=== PATIENT | male | born 1925 | race Caucasian/White ===

== ENCOUNTER 2017-03-01 21:45 | Inpatient (IN) ==
[2017-03-01 22:25] LABS: Basophils % 0.3 % (0.0-0.8); Hemoglobin 12.9 GM/DL (14.0-18.0); Immature Granulocytes % 0.4 %; Immature Granulocytes Absolute 0.08 #; Neutrophils % 35.8 % (38.7-73.9); Red Cell Distribution Width 18.7 % (9.3-17.3)
[2017-03-01 22:31] LABS: Basophils # 0.1 10*3/uL (0.0-0.2); Eosinophils # 0.2 10*3/uL (0.0-0.87); Eosinophils % 0.7 % (0.00-10.9); Hematocrit 38.8 VOL% (42.0-52.0); Lymphocytes % 59.6 % (21.2-54.2); Mean Corpuscular HGB Conc 33.2 GM/DL (32-36); Mean Corpuscular Hemoglobin 28 PG (27-34); Mean Corpuscular Volume 85.3 FL (87-102); Mean Platelet Volume 10.3 FL (9.6-12.0); Monocytes # 0.7 10*3/uL (0.11-0.8); Monocytes % 3.2 % (1.7-12.7); Neutrophils # 7.2 10*3/uL (1.4-7.4); Platelet Count 250 T/CUMM (130-400); Red Blood Count 4.55 MC/CUMM (3.8-5.5); White Blood Count 20.2 T/CUMM (4-12)
[2017-03-01 22:43] LABS: Alanine Aminotransferase 19 U/L (16-61); Albumin 3.7 G/DL (3.4-5.0); Alkaline Phosphatase 90 U/L (45-117); Aspartate Amino Transferase 27 U/L (0-37); Bilirubin,Total < 0.39 MG/DL (0.2-1.0); Blood Urea Nitrogen 15 MG/DL (7-18); Calcium 8.8 MG/DL (8.5-10.1); Glucose 106 MG/DL (74-106); Osmolality,Calculated 279.4 MOS/KG (273-304); Potassium 4.2 MMOL/L (3.5-5.1); Sodium 140 MMOL/L (136-145); Total Protein 6.4 G/DL (6.4-8.3)
[2017-03-01 23:31] LABS: D-Dimer 0.6 MG/L FEU; PT Patient Result 10.2 SECS; Partial Thromboplastin Time 24.6 SECS (0-40)
[2017-03-01 23:32] LABS: Troponin I Only < 0.015 NG/ML (0.00-0.045)
[2017-03-01] MEDS ORDERED: ALUM/MAG/SIMETH/LIDO VISC 1:1 30 ML BOTTLE PO ONE (23:55)
[2017-03-01] MEDS ORDERED: ALUM/MAG/SIMETH/LIDO VISC 1:1 30 ML BOTTLE PO STA (23:55)
[2017-03-02 00:30] LABS: Lymphocytes 53 % (20-55); Segmented Neutrophils 42 % (50-85); Total Cells Counted 100
[2017-03-02 00:31] LABS: Atypical Lymphocytes Few; Platelet Estimate Normal; Smudge Cells Moderate
--- NOTE | 2017-03-02 02:04 | Emergency Department Note ---
Arrival - Arrival Chief Complaint: Shortness of Breath Stated Complaint: sob ED Nursing Triage Note: pt brought in by ems with c/o shortness of breath and nausea. pt also states that his arm was "numb" pt has history of anxiety and requests "something for nerves" pt also has hx of chronic leukemia and is followed at the cancer center Mode of Arrival: Stretcher Limitations: No Limitations Source: Patient Time Seen by Provider: 03/01/17 22:59 - History of Present Illness HPI Narrative: Patient complains of sudden onset of shortness of breath, nausea and vomiting tonight. He also states that his arm was feeling numb and that he was also very anxious. He denies any chest pain on arrival. He has had no fever, cough , rhinorrhea, sore throat or other recent illness. He does have a history of anxiety. He has no known history of coronary disease. Allergies/Adverse Reactions: Allergies Allergy/AdvReac Type Severity Reaction Status Date / Time acetaminophen [From [place]] Allergy Mild ITCHING Verified 11/05/16 11:23 hydrocodone [From [place]] Allergy Mild ITCHING Verified 11/05/16 11:23 Hydromorphone [From Dilaudid] Allergy Mild ITCHING Verified 11/05/16 11:23 morphine Allergy Mild ITCHING Verified 01/23/15 08:24 codeine AdvReac Intermediate Nausea Verified 01/23/15 08:23 clarithromycin [From Biaxin] AdvReac Verified 07/22/16 08:03 terbinafine [From Lamisil] AdvReac Verified 07/22/16 08:03 Home Medications: Home Medications Medication Instructions Recorded Confirmed Type Esomeprazole Magnesium [Nexium] 40 mg PO BID 01/19/15 11/04/16 History Multivitamin [One Daily] 1 each PO BEDTIME 01/19/15 11/04/16 History Zolpidem Tartrate [Ambien] 10 mg PO BEDTIME PRN 01/19/15 11/04/16 History Levothyroxine Tab [Synthroid Tab] 25 mcg PO DAILY@0700 #30 tablet 01/26/1511/04 Rx Fluoxetine HCl [Prozac] 40 mg PO DAILY 03/25/16 11/04/16 History Terazosin [Hytrin] 10 mg PO BEDTIME 03/25/16 11/04/16 History clonazePAM [Klonopin] 1 mg PO BEDTIME 03/25/16 11/04/16 History Aspirin [Ecotrin] 81 mg PO DAILY 07/22/16 11/04/16 History Carbidopa/Levodopa 10-100 [Sinemet 1 tablet PO BEDTIME PRN 07/22/16 11/04/16 History 10-100] Gabapentin Cap/Tab [Neurontin 300 mg PO BID 07/22/16 11/04/16 History Cap/Tab] Melatonin 5 mg PO BEDTIME 07/22/16 11/04/16 History Ondansetron HCl [Zofran Tab] 8 mg PO QID 11/04/16 11/04/16 History Esomeprazole Magnesium [Nexium] 40 mg PO BID 11/05/16 11/05/16 History HYDROcodone/ACETAMIN 10-325 [[place] 1 mg PO 11/05/16 History 10-325] Polycarbophil [Fibercon] 1,250 mg PO DAILY 11/05/16 11/05/16 History Review of System - Review of System 12 point system: reviewed and no additional remarkable complaints except as stated - Review of System Constitutional: Absent: fever Head/Ears/Nose/Throat: Absent: nasal drainage, sore throat Respiratory: Absent: cough, wheezing Cardiovascular: Absent: chest pain Gastrointestinal: Present: nausea, vomiting. Absent: abdominal pain Neurological: Present: paresthesias Psychiatric: Present: anxiety Medical,Surgical,& Family Hx - Medical History Cardio: No history of: Hypertension Psychological: History of: Anxiety Disorders Neurology: History of: Migraine, Neurological Problems (history of trigeminal neuralgia) No history of: Seizures HEENT: History of: HEENT Problems (3 sinus surgeries) Endocrine: History of: Thyroid Disorder (hypothyroid) No history of: Diabetes Mellitus (NIDDM) Respiratory: No history of: Obstructive Sleep Apnea Genitourinary: History of: Prostate Problems (BPH) Gastrointestinal: History of: Diverticulitis/ Diverticulosis, GERD, Ulcerative Colitis, GI Problems (frequent nausea, hiatal hernia) Musculoskeletal: History of: Musculoskeletal Problems (arthritis in shoulder and knee) Hematology: History of: Anemia (iron deficiency), Hematologic Cancer (he has chronic lymphocytic leukemia) Other: History of: Skin Problems (skin cancers frequently) - Surgical History HEENT Surgeries: Surgical HX of: Eye Surgery (cataract removal both eyes) Patient denies: Tonsilectomy & Adenoidectomy Abdominal Surgeries: Surgical HX of: Cholecystectomy (galbladder removed 2012), Colonoscopy, EGD - Family History Family History: Reports;: Family Cancer (sister leukemia; she has ALL), Family Heart Disease (his mother had an [place]), Family Hypertension (father heart attack) , Family Stroke (his sister had a stroke) - Social History Smoking Status: Never smoker Frequency of Alcohol Use: None Type of Drug Use: None Exam Physical Examination: GENERAL: Alert. No acute distress. HEENT: Normocephalic and atraumatic. There is no nasal drainage. No pharyngeal erythema or exudate. NECK: Normal inspection. Supple. No lymphadenopathy or meningismus. LUNGS: No respiratory distress. Clear to auscultation bilaterally, no wheezes, rales or rhonchi. HEART: Regular rate and rhythm. ABDOMEN: Soft, nontender and nondistended with normoactive bowel sounds. BACK: Normal inspection. SKIN: Color normal. Warm and dry. EXTREMITIES: Nontender. Normal range of motion. No pedal edema. NEUROLOGICAL/PSYCHIATRIC: Alert and oriented -3 with normal mood and affect. Cranial nerves normal. No motor or sensory deficit. Vital Signs: Vital Signs Temperature 97.6 F 03/01/17 21:54 Pulse Rate 86 03/01/17 21:54 Respiratory Rate 22 03/01/17 21:54 Blood Pressure 124/101 03/01/17 21:54 O2 Sat by Pulse Oximetry 98 03/01/17 21:54 Course - Reevaluation(s) Reevaluation #1: The patient developed some "heartburn" after arrival here. He was given a GI cocktail and the symptoms resolved. He states they are now coming back a little bit but he has had no further shortness of breath or vomiting. I think given his age and anxiety over the situation admission for observation and serial enzymes as warranted. I discussed the patient with Dr. Valladares and will admit to Dr. Ceja for further observation. Time: 02:55 Results - Labs CBC & BMP: 03/01/17 22:10 03/01/17 22:10 Lab Results: I have reviewed the patients labs Labs: Laboratory Tests 03/01/17 03/01/17 03/01/17 22:10 22:11 22:11 INR 1.0 D-Dimer, Quantitative 0.6 Total Bilirubin < 0.39 AST 27 ALT 19 Total Creatine Kinase 191 CK-MB (CK-2) 4.5 H Troponin I < 0.015 Total Protein 6.4 - Impressions Chest x-ray shows no acute abnormality. EKG shows a normal sinus rhythm at 84 with a right bundle branch block. The bundle branch block was also present on an EKG done in 2015. Disposition Clinical Impression: Dyspnea, Chest pain, Nausea & vomiting, Leukocytosis (leucocytosis), Anxiety Case discussed with: patient Disposition: Still a Patient Condition: Stable Time of Disposition: 03:03
[2017-03-02] MEDS ORDERED: PANTOPRAZOLE 40 MG VIAL IV STA (03:03)
[2017-03-02] MEDS ORDERED: ALUMINUM/MAGNES/SIMETH MAX STR 30 ML UDCUP PO STA (03:03)
[2017-03-02] MEDS ORDERED: ALUM/MAG/SIMETH/LIDO VISC 1:1 30 ML BOTTLE PO ONE (03:10)
[2017-03-02] MEDS ORDERED: PANTOPRAZOLE 40 MG VIAL IV ONE (03:10)
[2017-03-02] MEDS ORDERED: ALUMINUM/MAGNES/SIMETH MAX STR 30 ML UDCUP ONE (03:18)
[2017-03-02] MEDS ORDERED: ONDANSETRON 4 MG/2 ML VIAL IV PRN (04:20)
[2017-03-02] MEDS: traMADol 50 MG TABLET PO PRN ×2 (05:08→09:43)
[2017-03-02] MEDS ORDERED: ZALEPLON 5 MG CAPSULE PO PRN (07:58)
[2017-03-02] MEDS ORDERED: CARBIDOPA/LEVODOPA 10-100 MG TABLET PO PRN (07:58)
--- NOTE | 2017-03-02 08:03 | Family Practice History&Phys ---
Assessment and Plan (1) Atypical chest pain Status: Acute Assessment and plan: 02/22/2017: We will continue cardiac isoenzymes profile. I reassured him that I did not think this was cardiac. He has had persistent pain since yesterday with a negative cardiac isoenzymes. Will repeat EKG this morning. Current Visit: Yes History of Present Illness Chief complaint: Chest pain and shortness of breath. History of present illness: Mr. Gibson is a 89 year old male Patient is a 89-year-old gentleman who presented to the emergency room complaining of chest discomfort. Patient states this was associated with shortness of breath and he became very anxious and told me this morning he needed something for his nerves. He is on Klonopin at home I told we will restart that for him. He had his initial cardiac isoenzymes were negative. The series is pending. Patient's noted to have chest wall tenderness and he tells me it hurts to take a deep breath or hurts to cough. Has not had any fever or chills. Home Medications Medication Instructions Recorded Confirmed Type Esomeprazole Magnesium [Nexium] 40 mg PO BID 01/19/15 11/04/16 History Multivitamin [One Daily] 1 each PO DAILY 01/19/15 03/02/17 History Zolpidem Tartrate [Ambien] 10 mg PO BEDTIME PRN 01/19/15 11/04/16 History Levothyroxine Tab [Synthroid Tab] 25 mcg PO DAILY@0700 #30 tablet 01/26/1503/02 Rx Fluoxetine HCl [Prozac] 40 mg PO DAILY 03/25/16 03/02/17 History Terazosin [Hytrin] 10 mg PO BEDTIME 03/25/16 11/04/16 History Aspirin [Ecotrin] 81 mg PO DAILY 07/22/16 11/04/16 History Carbidopa/Levodopa 10-100 [Sinemet 1 tablet PO BEDTIME PRN 07/22/16 11/04/16 History 10-100] Gabapentin Cap/Tab [Neurontin 300 mg PO BID 07/22/16 03/02/17 History Cap/Tab] Melatonin 5 mg PO BEDTIME 07/22/16 11/04/16 History Ondansetron HCl [Zofran Tab] 8 mg PO QID 11/04/16 11/04/16 History Esomeprazole Magnesium [Nexium] 40 mg PO BID 11/05/16 11/05/16 History HYDROcodone/ACETAMIN 10-325 [[place] 1 mg PO 11/05/16 History 10-325] Polycarbophil [Fibercon] 1,250 mg PO DAILY 11/05/16 11/05/16 History Ascorbic Acid [Vitamin C] 500 mg PO 03/02/17 History Ferrous Sulfate Tab [Feosol 325 mg PO DAILY 03/02/17 03/02/17 History Original Tab] Gluc/David-MSM#2/C/D3/Laureano/Born 1 each PO 03/02/17 History [Zpdpsxjjuu-Bxbgqncjdch-TPP Tab] clonazePAM TAB [KlonoPIN] 0.5 mg PO BID PRN 03/02/17 03/02/17 History Allergies Allergy/AdvReac Type Severity Reaction Status Date / Time acetaminophen [From [place]] Allergy Mild ITCHING Verified 11/05/16 11:23 hydrocodone [From [place]] Allergy Mild ITCHING Verified 11/05/16 11:23 Hydromorphone [From Dilaudid] Allergy Mild ITCHING Verified 11/05/16 11:23 morphine Allergy Mild ITCHING Verified 01/23/15 08:24 codeine AdvReac Intermediate Nausea Verified 01/23/15 08:23 clarithromycin [From Biaxin] AdvReac Verified 07/22/16 08:03 terbinafine [From Lamisil] AdvReac Verified 07/22/16 08:03 - Constitutional Constitutional: Present: weakness. Absent: chills, fever(s) - EENT Eyes: Absent: blurry vision, loss of vision Ears: Absent: decreased hearing, ear pain Nose, mouth and throat: Absent: hoarseness, nasal congestion, sinus pressure, sore throat - Cardiovascular Cardiovascular: Present: as per HPI, chest pain at rest, dyspnea. Absent: radiating jaw, neck or arm pain, lightheadedness, orthopnea, palpitations, PND - Respiratory Respiratory: Absent: cough, dyspnea, dyspnea on exertion, wheezing - Gastrointestinal Gastrointestinal: Absent: abdominal pain, diarrhea, hematemesis, hematochezia, nausea, vomiting - Genitourinary Genitourinary: Absent: dysuria, hematuria, urinary frequency - Musculoskeletal Musculoskeletal: Absent: arthralgias, back pain - Neurological Neurological: Absent: abnormal gait, confusion, focal weakness, numbness, paresthesias - Psychiatric Psychiatric: Present: as per HPI, anxiety. Absent: confusion - Endocrine Endocrine: Absent: fatigue, polydipsia, polyphagia - Hematologic/Lymphatic Hematologic/Lymphatic: Absent: easy bleeding, easy bruising Medical,Surgical,& Family Hx - Medical History Cardio: No history of: Hypertension Psychological: History of: Anxiety Disorders Neurology: History of: Migraine, Neurological Problems (history of trigeminal neuralgia) No history of: Seizures HEENT: History of: HEENT Problems (3 sinus surgeries) Endocrine: History of: Thyroid Disorder (hypothyroid) No history of: Diabetes Mellitus (NIDDM) Respiratory: No history of: Obstructive Sleep Apnea Genitourinary: History of: Prostate Problems (BPH) Gastrointestinal: History of: Diverticulitis/ Diverticulosis, GERD, Ulcerative Colitis, GI Problems (frequent nausea, hiatal hernia) Musculoskeletal: History of: Musculoskeletal Problems (arthritis in shoulder and knee) Hematology: History of: Anemia (iron deficiency), Hematologic Cancer (he has chronic lymphocytic leukemia) Other: History of: Skin Problems (skin cancers frequently) - Surgical History HEENT Surgeries: Surgical HX of: Eye Surgery (cataract removal both eyes) Patient denies: Tonsilectomy & Adenoidectomy Abdominal Surgeries: Surgical HX of: Cholecystectomy (galbladder removed 2012), Colonoscopy, EGD - Family History Family History: Reports;: Family Cancer (sister leukemia; she has ALL), Family Heart Disease (his mother had an [place]), Family Hypertension (father heart attack) , Family Stroke (his sister had a stroke) - Social History Smoking Status: Never smoker Frequency of Alcohol Use: None Type of Drug Use: None Exam - Constitutional Vitals: Period Temp Pulse Resp BP Sys/Castillo Pulse Ox Last 24 Hr 97.6 F-98.4 F 70-86 15-22 124-158/84-101 98-99 Exam: General: Objective patient is a well-developed anxious white male in no acute distress. He is able to answer questions appropriately. HEENT: Pupils equal and reactive to light. Patent nares and airway Neck: No meningismus, adenopathy, thyromegaly. There are no auscultated carotid bruits. Cardiovascular: Regular rhythm. No murmurs or gallops Chest: Clear to auscultation without rales rhonchi wheezes. Patient is noted to have exquisite anterior chest wall tenderness. Abdomen: Soft nontender to palpation No masses, rebound, guarding or tenderness. Neuro: Cranial nerves intact and DTRs and strength symmetric in all extremities. Dermatologic: No evidence of abnormal lesions or masses. Musculoskeletal: There is no joint swelling or tenderness or deformity. Results - Labs CBC & BMP: 03/01/17 22:10 03/01/17 22:10 Lab Results: I have reviewed the past 24 hour labs - EKG EKG results: sinus rhythm (84 bpm) - Impressions Right bundle branch block
[2017-03-02] MEDS: ASCORBIC ACID 500 MG TABLET PO SCH (09:41)
[2017-03-02] MEDS: PANTOPRAZOLE 40 MG VIAL IV SCH (09:41)
[2017-03-02] MEDS: ASPIRIN EC 81 MG TABLET PO SCH (09:43)
[2017-03-02] MEDS: MULTIVITAMIN (CENTRUM) TABLET PO SCH (09:43)
[2017-03-02] MEDS: DOCUSATE SODIUM 100 MG CAPSULE PO SCH ×2 (09:43→21:58)
[2017-03-02] MEDS: GABAPENTIN 300 MG CAPSULE PO SCH ×2 (09:43→21:58)
[2017-03-02] MEDS: POLYCARBOPHIL 625 MG TABLET PO SCH (09:44)
[2017-03-02] MEDS: FLUoxetine 20 MG CAPSULE PO SCH (09:44)
[2017-03-02] MEDS: clonazePAM 0.5 MG TABLET PO PRN (09:44)
[2017-03-02] MEDS: FERROUS SULFATE 325 MG TABLET PO SCH (09:46)
--- NOTE | 2017-03-02 10:09 | EKG Report ---
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
--- NOTE | 2017-03-02 10:20 | XRay Report ---
History: Shortness of breath Date: 03/01/2017 Study: Chest x-ray AP portable Comparison exam: Rib series August 07, 2016 There is borderline cardiomegaly. There is no mediastinal mass. The pulmonary vasculature is not engorged. There is no gross pleural effusion. There is some mild platelike scar or subsegmental atelectasis in the right lower lung similar to the previous study. There is no obvious acute infiltrate or gross pleural effusion. Osseous structures are unchanged. Impression: No definite evidence of an acute process. Mild platelike scar or subsegmental atelectasis right lower lung similar to the previous study PROCEDURE INTERPRETED AT [facility] [place] DEPARTMENT OF RADIOLOGY Final Report Signed by: Dr. Amanda Huntley
[2017-03-02] MEDS ORDERED: TERAZOSIN 5 MG CAPSULE PO SCH (21:00)
[2017-03-02] MEDS ORDERED: MELATONIN 3 MG TABLET PO SCH (21:00)
[2017-03-03] MEDS ORDERED: LEVOTHYROXINE 25 MCG TABLET PO SCH (07:00)
--- NOTE | 2017-03-03 07:36 | EKG Report ---
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
[2017-03-03 08:14] VITALS: BP 155/67
--- NOTE | 2017-03-03 08:53 | Discharge Summary ---
Hospital Course - Hospital Course Hospital Course: Patient is a 89-year-old white male admitted to the emergency room with substernal chest pain. Patient clearly had a musculoskeletal component of his discomfort. EKG showed no evidence of any acute ischemia. Initial cardiac isoenzymes were negative and his repeat study is pending this morning. If this is negative he can be discharged home. Diagnosis - Discharge Diagnosis (1) Atypical chest pain Status: Acute Discharge Plan - Discharge Data Disposition: Disch To Home/Self Care Condition at Discharge: Stable Discharge Diet: advance to your usual diet Activity: resume usual activities as tolerated Hygiene: no restrictions Weight Bearing at Discharge: full weight bearing Driving: no restrictions - Discharge Medications New Ascorbic Acid Tab [Vitamin C Tab] 500 mg PO DAILY tablet Aspirin EC Tab 81 mg PO DAILY tablet Carbidopa/Levodopa 10-100 [Sinemet 10-100] 1 tablet PO BEDTIME PRN tablet PRN Reason: Restlessness clonazePAM TAB [KlonoPIN] 0.5 mg PO BID PRN tablet PRN Reason: Anxiety Ferrous Sulfate Tab [Feosol Original Tab] 325 mg PO DAILY tablet Gabapentin Cap/Tab [Neurontin Cap/Tab] 300 mg PO BID capsule HYDROcodone/ACETAMIN 10-325 [[place] 10-325] 1 tablet PO Q6H tablet Levothyroxine Tab [Synthroid Tab] 25 mcg PO DAILY@0700 tablet Multivitamin (Centrum) [Centrum Tab] 1 tablet PO DAILY tablet Polycarbophil [Fibercon] 1,250 mg PO DAILY tablet Terazosin [Hytrin] 10 mg PO BEDTIME capsule Zaleplon [Sonata] 5 mg PO BEDTIME PRN #30 capsule PRN Reason: Sleep FLUoxetine [PROzac] 40 mg PO DAILY capsule Melatonin 3 mg PO BEDTIME tablet Continue Esomeprazole Magnesium [Nexium] 40 mg PO BID Gluc/David-MSM#2/C/D3/Laureano/Born [Rpooxdqtfg-Dkurpolyvkp-DKT Tab] 1 each PO Ondansetron HCl [Zofran Tab] 8 mg PO QID Discontinued Multivitamin [One Daily] 1 each PO DAILY Zolpidem Tartrate [Ambien] 10 mg PO BEDTIME PRN PRN Reason: Sleep Levothyroxine Tab [Synthroid Tab] 25 mcg PO DAILY@0700 #30 tablet Fluoxetine HCl [Prozac] 40 mg PO DAILY Terazosin [Hytrin] 10 mg PO BEDTIME Gabapentin Cap/Tab [Neurontin Cap/Tab] 300 mg PO BID Aspirin [Ecotrin] 81 mg PO DAILY Melatonin 5 mg PO BEDTIME Carbidopa/Levodopa 10-100 [Sinemet 10-100] 1 tablet PO BEDTIME PRN PRN Reason: Restlessness Polycarbophil [Fibercon] 1,250 mg PO DAILY HYDROcodone/ACETAMIN 10-325 [Aurora 10-325] 1 tablet PO Ferrous Sulfate Tab [Feosol Original Tab] 325 mg PO DAILY Ascorbic Acid [Vitamin C] 500 mg PO clonazePAM TAB [KlonoPIN] 0.5 mg PO BID PRN PRN Reason: Anxiety No Action Esomeprazole Magnesium [Nexium] 40 mg PO BID - Follow Up or Referral - Forms/Instructions Exam - Constitutional Vitals: Period Temp Pulse Resp BP Sys/Castillo Pulse Ox Last 24 Hr 96.9 F-98.3 F 76-85 18-20 98-167/50-85 92-96 Exam: Objective well-developed white male no acute distress. Is able give good history and states he is not having any discomfort this morning. Cardiovascular: Heart rates regular without murmurs or gallops. Respiratory: Lungs clear to auscultation bilaterally. Chest: Patient has diffuse anterior chest wall tenderness. DS: Provider Date of admission: 03/02/17 03:04 Primary care physician: Mehrdad Ceja DO Attending physician on admission: Mehrdad Ceja DO Consults: 03/02/17 04:20 Consult to Case Mgmt/Social Srvs [CONS] Routine Reason for Case Mgmt/Social Srvs: Discharge Planning Discharging clinician: Rg Valladares MD Expected date of discharge: 03/03/17
[2017-03-03] MEDS: POLYCARBOPHIL 625 MG TABLET PO SCH (09:21)
[2017-03-03] MEDS: ASPIRIN EC 81 MG TABLET PO SCH (09:21)
[2017-03-03] MEDS: MULTIVITAMIN (CENTRUM) TABLET PO SCH (09:21)
[2017-03-03] MEDS: DOCUSATE SODIUM 100 MG CAPSULE PO SCH (09:21)
[2017-03-03] MEDS: GABAPENTIN 300 MG CAPSULE PO SCH (09:22)
[2017-03-03] MEDS: FERROUS SULFATE 325 MG TABLET PO SCH (09:22)
[2017-03-03] MEDS: ASCORBIC ACID 500 MG TABLET PO SCH (09:22)
[2017-03-03] MEDS: clonazePAM 0.5 MG TABLET PO PRN (09:22)
[2017-03-03] MEDS: FLUoxetine 20 MG CAPSULE PO SCH (09:22)
[2017-03-03 09:49] LABS: Troponin I Only < 0.015 NG/ML (0.00-0.045)
[2017-03-03] MEDS: PANTOPRAZOLE 40 MG VIAL IV SCH (11:28)
== END 2017-03-03 11:50 | disposition home or self-care (01) | DRG 313 ==
LOC: N.ED 21:45 → N.EDINP 03-02 03:04 → N.TELES 03-02 03:44
PROVIDERS: ADMIT Family Medicine; ATTEND Family Medicine